=== PATIENT | female | born 1940 | race African-American/Black ===

== ENCOUNTER → 2017-02-21 | Outpatient (CLI) | payer MEDICARE, BC ==
[2016-07-09 20:25] VITALS: BP 148/67
[~2017-02-21] MED LIST: ADAL40PE SQ; ALPR0.25 PO; BISM262T9 PO; CARI350T PO; CELE200C PO; DOCU-27 PO; FOLI1TAB16 PO; HYDR-971 PO; LINA145C PO; METH2.5T PO; OXYC-323 PO; RANI150T2 PO; TRAM50TA PO; VENL37.5 PO
--- NOTE | 2017-02-21 20:32 | CARD ---
APPROVED REPORT EXAM: Two-dimensional and M-mode echocardiogram with Doppler and color Doppler. Other Information Quality : GoodHR: 73bpm Rhythm : NSR INDICATION Palpitations, Abnormal EKG, LVH 2D DIMENSIONS RVDd2.9 (2.9-3.5cm)Left Atrium(2D)3.7 (1.6-4.0cm) IVSd1.1 (0.7-1.1cm)Aortic Root(2D)2.4 (2.0-3.7cm) LVDd4.6 (3.9-5.9cm)LVOT Diameter2.1 (1.8-2.4cm) PWd1.1 (0.7-1.1cm)LVDs2.9 (2.5-4.0cm) FS (%) 37.2 %SV66.1 ml LVEF(%)67.2 (>50%) Aortic Valve AoV Peak Monroe.150.0cm/sAoV VTI32.9cm AO Peak GR.9.0mmHgLVOT Peak Monroe.115.3cm/s AO Mean GR.5mmHgAVA (VMAX)2.55cm2 Mitral Valve MV E Rddhcvye25.9cm/sMV DECEL MIKQ797sm MV A Hzrrqqwb46.3cm/sE/A Ratio0.8 MV A Ntjwkuko03df Pulmonary Valve PV Peak Nmoucban185.5cm/s Tricuspid Valve TR P. Yyiibmjb670vn/sTR Peak Gr.28mmHg Pulmonary Vein S1 Dgspczyc84.5cm/sD2 Txtzfmlo74.9cm/s PVa [id number] LEFT VENTRICLE The left ventricle is normal size. There is mild concentric left ventricular hypertrophy. The left ve ntricular systolic function is normal and the ejection fraction is 60-65%. There is normal LV segment al wall motion. Transmitral Doppler flow pattern is abnormal. RIGHT VENTRICLE The right ventricle is normal size. There is normal right ventricular wall thickness. The right ventr icular systolic function is normal. ATRIA The left atrium size is normal. The right atrium size is normal. The interatrial septum is intact wit h no evidence for an atrial septal defect or patent foramen ovale as noted on 2-D or Doppler imaging. AORTIC VALVE The aortic valve is normal in structure and function. Doppler and Color Flow revealed no significant aortic regurgitation. There is no significant aortic valvular stenosis. MITRAL VALVE The mitral valve is normal in structure and function. There is no evidence of mitral valve prolapse. There is no mitral valve stenosis. Doppler and Color Flow revealed trace mitral regurgitation. TRICUSPID VALVE Doppler and Color Flow revealed mild tricuspid regurgitation. The pulmonary artery systolic pressure is estimated at 31 mmHg. There is mild pulmonary hypertension. PULMONIC VALVE Doppler and Color Flow revealed no pulmonic valvular regurgitation. There is no pulmonic valvular teresa nosis. GREAT VESSELS The aortic root is normal in size. The ascending aorta is normal in size. The pulmonary artery is nor mal. The IVC is normal in size and collapses >50% with inspiration. PERICARDIAL EFFUSION There is no evidence of significant pericardial effusion. Critical Notification Critical Value: No <Conclusion> The left ventricle is normal size. There is mild concentric left ventricular hypertrophy. The left ventricular systolic function is normal and the ejection fraction is 60-65%. There is a Grade I diastolic dfysfunction There is no mitral stenosis or regurgitation The left atrium is of a normal swize. There is no aortic stenosis or regurgitation .The right ventricle is of a normal size with normal systolic function. The pulmonic valve is normal. Doppler and Color Flow revealed mild tricuspid regurgitation. The pulmonary artery systolic pressure is estimated at 31 mmHg. There is mild pulmonary hypertension.
== END | disposition home or self-care (01) ==
LOC: ECHO 10:36
PROVIDERS: ATTEND Family Medicine
DX: I08.1 Rheumatic disorders of both mitral and tricuspid valves (principal); R94.31 Abnormal electrocardiogram [ECG] [EKG]
CPT/HCPCS: 93306

== ENCOUNTER 2018-01-03 14:34 | Emergency (ER) | payer MEDICARE, BC ==
[2018-01-03 15:50] LABS: ADD MAN DIFF? NO
[2018-01-03 15:54] LABS: BASO % 1 % (0-3); EOS # 0.1 x10^3/uL (0.0-0.7); EOS % 1 % (0-3); HEMATOCRIT 39.2 % (36.0-47.0); HEMOGLOBIN 12.9 g/dL (12.0-15.5); LYMPH # 2.8 x10^3/uL (1.0-4.8); LYMPH % 53 % (24-48); MEAN CORPUSCULAR HEMOGLOBIN 29 pg (25-35); MEAN CORPUSCULAR HGB CONC 33 g/dL (31-37); MEAN CORPUSCULAR VOLUME 88 fL (79-100); MONO # 0.6 x10^3/uL (0.0-1.1); MONO % 10 % (0-9); NEUT # 1.8 x10^3uL (1.8-7.7); NEUT % 35 % (31-73); PLATELET COUNT 222 x10^3/uL (140-400); RED BLOOD COUNT 4.45 x10^6/uL (3.50-5.40); RED CELL DISTRIBUTION WIDTH 14.3 % (11.5-14.5); WHITE BLOOD COUNT 5.3 x10^3/uL (4.0-11.0)
[2018-01-03 16:17] LABS: TROPONINI < 0.017 ng/mL (0.000-0.055)
[2018-01-03] MEDS: oxyCODONE IR 5 MG TABLET PO (16:27)
[2018-01-03 16:33] LABS: ALBUMIN 3.2 g/dL (3.4-5.0); ALBUMIN/GLOBULIN RATIO 0.7 (1.0-1.7); ALK PHOS 116 U/L (46-116); ALT (SGPT) 22 U/L (14-59); ANION GAP 8 (6-14); AST (SGOT) 28 U/L (15-37); BLOOD UREA NITROGEN 12 mg/dL (7-20); BUN/CREATININE RATIO 13 (6-20); CALCIUM 9.1 mg/dL (8.5-10.1); CARBON DIOXIDE 28 mmol/L (21-32); CHLORIDE 104 mmol/L (98-107); CREATININE 0.9 mg/dL (0.6-1.0); GFR 73.9; GLUCOSE 119 mg/dL (70-99); POTASSIUM 3.7 mmol/L (3.5-5.1); SODIUM 140 mmol/L (136-145); TOTAL BILIRUBIN 0.3 mg/dL (0.2-1.0); TOTAL PROTEIN 7.6 g/dL (6.4-8.2)
== END 2018-01-03 17:53 | disposition home or self-care (01) ==
LOC: ER 14:34
DX: M79.671 Pain in right foot (principal); R07.89 Other chest pain; M79.601 Pain in right arm; K21.9 Gastro-esophageal reflux disease without esophagitis; M06.9 Rheumatoid arthritis, unspecified; W01.0XXA Fall on same level from slipping, tripping and stumbling without subsequent striking against object, initial encounter; Y93.89 Activity, other specified; Y99.8 Other external cause status; Y92.89 Other specified places as the place of occurrence of the external cause
CPT/HCPCS: 36415; 70450; 71101; 72125; 73030; 73130; 73502; 73552; 73590; 73630; 80053; 84484; 85025; 93005; 99285-25

== ENCOUNTER → 2019-02-09 | Outpatient (CLI) | payer MEDICARE, BC ==
[2018-01-03 17:39] VITALS: BP 155/67
[~2019-02-09] MED LIST changes: +CONTRAST GIVEN. MC PRN; +DOCU-109 PO; -DOCU-27 PO; +HYDR-3164 PO; -HYDR-971 PO; +IBUP-1027 PO; +IOHEXOL 240 MG/ML 50ML VIAL. PO ONE; +IOHEXOL 300 MG/ML 100ML VIAL. IV ONE; -LINA145C PO; +LINZESS145 MCG PO; -OXYC-323 PO; +OXYC1TAB15 PO
--- NOTE | 2019-02-09 15:08 | KCIC ---
Examination: CT chest abdomen with IV and oral contrast HISTORY: History of left upper quadrant pain, pain under left breast COMPARISON: None available TECHNIQUE: Axial CT images of the chest and abdomen performed with IV contrast. Oral contrast was used for CT abdomen. Coronal and sagittal reformats are performed. Exposure: One or more of the following individualized dose reduction techniques were utilized for this examination: 1. Automated exposure control 2. Adjustment of the mA and/or kV according to patient size 3. Use of iterative reconstruction technique FINDINGS: The visualized thyroid gland grossly appears unremarkable. The central airways are patent. Mild cardiomegaly. The caliber of the aorta grossly appears unremarkable. No radiologically significant mediastinal lymphadenopathy is identified. Scattered nodules identified in the bilateral lungs with the largest measuring 5 mm in the right upper lobe. No evidence of pleural effusion or pneumothorax. Mild bibasilar lung atelectasis. The visualized liver, spleen, adrenals grossly appears unremarkable. The gallbladder is mildly distended. The common bile duct appears prominent. There is mild dilated appearing pancreatic duct measuring up to 5 mm in transverse dimension.. The visualized spleen, adrenals grossly appears unremarkable. The stomach is mildly distended. Small hiatal hernia is identified. The small bowel is nondilated. The bilateral kidneys enhance symmetrically. Small superior endplate Schmorl's node identified at T11, T12 vertebral bodies. Mild degenerative changes thoracic spine. Moderate degenerative changes identified in the lumbar spine at L3-L4, L4-L5 vertebral level with posterior disc bulges and protrusions Right breast prosthesis is identified IMPRESSION: 1. Mild prominent appearing possibly dilated appearing pancreatic duct and common bile duct. Recommend MRCP with MRI abdomen for further evaluation. 2. Scattered lung nodules with the largest measuring 5 mm in the right upper lobe of the lung. Follow-up per Fleischner Society guidelines with a follow-up CT chest in 6 months. Electronically signed by: Miguel Larose MD (02/09/2019 3:05 PM) [facility]
== END | disposition home or self-care (01) ==
LOC: KCIC CT 12:07
PROVIDERS: ATTEND Internal Medicine Gastroenterology
DX: R91.8 Other nonspecific abnormal finding of lung field (principal); I51.7 Cardiomegaly; J98.11 Atelectasis; K82.8 Other specified diseases of gallbladder; K44.9 Diaphragmatic hernia without obstruction or gangrene; K31.89 Other diseases of stomach and duodenum; M51.44 Schmorl's nodes, thoracic region
CPT/HCPCS: 71260; 74160; 82565; Q9966; Q9967

== ENCOUNTER → 2019-03-12 | Outpatient (CLI) | payer MEDICARE, BC ==
[2018-01-03 17:39] VITALS: BP 155/67
[~2019-03-12] MED LIST changes: -CONTRAST GIVEN. MC PRN; +GADOBUTROL 10 MMOL/10 ML VIAL IV ONE; -IOHEXOL 240 MG/ML 50ML VIAL. PO ONE; -IOHEXOL 300 MG/ML 100ML VIAL. IV ONE
--- NOTE | 2019-03-12 17:01 | KCIC ---
MRI abdomen with and without contrast and MRCP: Clinical indications: Intermittent left upper quadrant pain for one year. Abnormal CT. History of right breast cancer.. Technique: T1 and T2 weighted MRI sequences of the abdomen was performed in the axial and coronal planes. In phase and out of phase MRI sequences were performed. Using a single shot heavily T2-weighted fast spin-echo and MIP algorithm, 3-D reconstructed MRCP was generated. After IV infusion of 6 cc of Gadavist, postcontrast enhanced multiphasic T1-weighted imaging was performed. COMPARISON: Chest and abdomen CT study dated January 13, 2019. Findings: MRI abdomen: The liver is homogeneous in appearance. The spleen is homogeneous in appearance. The pancreas is homogeneous in appearance. The gallbladder is normal. No adrenal mass is evident. Small right renal cyst. The left kidney is normal. No focal aneurysmal dilatation of the abdominal aorta is seen. No enlarged abdominal lymphadenopathy is seen. No ascites is seen. MRCP: No abnormal dilatation of the intrahepatic or extrahepatic biliary tree is seen. The common bile duct measures 5 to 6 mm in caliber which is normal. No filling defects are seen within the extrahepatic biliary tree. No stricture is seen. There is dilatation of the main pancreatic duct with a smooth contour. It measures 5 mm. IMPRESSION: Small right renal cyst. Smooth dilatation of the main pancreatic duct all the way to the sphincter of Domingo. No filling defect or stricture is seen. No pancreatic mass is seen. Recommend continued abdomen CT follow-up with IV contrast in 6-12 months. Electronically signed by: Pancho King MD (03/12/2019 4:58 PM) [id number]
== END | disposition home or self-care (01) ==
LOC: KCIC MRI 08:52
PROVIDERS: ATTEND Internal Medicine Gastroenterology
DX: N28.1 Cyst of kidney, acquired (principal)
CPT/HCPCS: 74182; A9585

== ENCOUNTER → 2020-04-05 | Outpatient (CLI) | payer MEDICARE, BC ==
[2018-01-03 17:39] VITALS: BP 155/67
[~2020-04-05] MED LIST changes: -GADOBUTROL 10 MMOL/10 ML VIAL IV ONE
--- NOTE | 2020-04-05 17:04 | KCIC ---
3 view study of the right shoulder Clinical indications: Right shoulder pain. Limited range of motion for weeks. FINDINGS: No acute fracture or dislocation or lytic process is evident. The glenohumeral joint is unremarkable. There is mild primary degenerative osteoarthritis and spurring of the right AC joint. No AC joint separation is seen. No erosive arthropathy is evident. 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 Electronically signed by: Pancho King MD (04/05/2020 5:02 PM) [id number]
== END | disposition home or self-care (01) ==
LOC: KCIC 14:20
PROVIDERS: ATTEND Internal Medicine Rheumatology
DX: M19.011 Primary osteoarthritis, right shoulder (principal); M77.8 Other enthesopathies, not elsewhere classified
CPT/HCPCS: 73030

== ENCOUNTER → 2021-09-26 | Outpatient (CLI) | payer MEDICARE, BC ==
[2018-01-03 17:39] VITALS: BP 155/67
--- NOTE | 2021-09-27 10:58 | KCIC ---
XR BILAT FEET 3 VIEWS History: Reason: POLYARTHRALGIA, BILAT FOOT PAIN RT WORSE / Spl. Instructions: / History: Technique: 3 views bilateral feet. Comparison: None. Findings: Left foot: Mild first MTP DJD. No dislocation. No acute fracture. Right foot: Moderate first MTP degenerative changes with remodeling and osteophyte formation. No disl ocation. No acute fracture. Impression: 1. 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 Electronically signed by: Kailash Lim DO (09/27/2021 10:56 AM) [id number]
== END ==
LOC: KCIC 12:41
PROVIDERS: ATTEND Internal Medicine Rheumatology
DX: M19.072 Primary osteoarthritis, left ankle and foot (principal); M19.071 Primary osteoarthritis, right ankle and foot; M25.775 Osteophyte, left foot; M25.774 Osteophyte, right foot
CPT/HCPCS: 73630-50

== ENCOUNTER → 2021-09-26 | Outpatient (CLI) | payer MEDICARE, BC ==
[2018-01-03 17:39] VITALS: BP 155/67
[~2021-09-26] MED LIST changes: +IOHEXOL 240 MG/ML 50ML VIAL. PO ONE; +IOHEXOL 300 MG/ML 100ML VIAL. IV ONE
--- NOTE | 2021-09-26 15:36 | KCIC ---
PQRS Compliance Statement: One or more of the following individualized dose reduction techniques were utilized for this examinat ion: 1. Automated exposure control 2. Adjustment of the mA and/or kV according to patient size 3. Use of iterative reconstruction technique CT abdomen/pelvis with contrast 09/26/2021 1:30 PM INDICATION: Left upper quadrant pain. Diverticulosis. COMPARISON: MRCP 03/12/2019, CT chest and abdomen 02/09/2019 TECHNIQUE: Multiple axial CT images of the abdomen and pelvis were obtained after the intravenous adm inistration of 89 mL Isovue-370. Coronal and sagittal reformats are provided. FINDINGS: Right breast prosthesis. Lung bases are clear. Heart size within normal limits. There is an 8 mm cyst in the inferior left hepatic lobe (series 2, image 20). Spleen, adrenal glands and pancreas are norm al in appearance. Main pancreatic duct is mildly prominent measuring 3.5 mm. Gallbladder is present w ithout adjacent inflammation. Abdominal aorta is normal in course and caliber. No pathologically enlarged lymph nodes are identifie d in abdomen and pelvis. There is no free fluid or free intraperitoneal air. Moderate stool identified throughout the colon with rectal dilatation measuring up to 6.7 x 6.1 cm. O ral contrast was administered. Opacified bowel loops demonstrate normal mucosal fold pattern. Small a nd large bowel are normal in caliber. There is no evidence for bowel obstruction. There are no shaka lonic inflammatory changes. A normal, nondilated appendix is visualized without adjacent inflammatory changes. 8 mm simple cyst in interpolar right kidney. The kidneys enhance symmetrically. There is no suspiciou s renal mass. There is no hydronephrosis. There are no suspected calculi within the kidneys, ureters or urinary bladder. Urinary bladder is within normal limits given degree of distention. Uterus is normal. No suspicious a dnexal mass. IMPRESSION: No bowel obstruction or inflammation. Moderate stool throughout the colon with rectal dilatation measuring up to 6.7 x 6.1 cm. Mild dilatation of the main pancreatic duct may be secondary to mild pancreatic atrophy. Electronically signed by: Juanita John MD (09/26/2021 3:34 PM) [facility]
== END ==
LOC: KCIC CT 12:35
PROVIDERS: ATTEND Internal Medicine Gastroenterology
DX: K57.30 Diverticulosis of large intestine without perforation or abscess without bleeding (principal); N28.1 Cyst of kidney, acquired; Z98.82 Breast implant status
CPT/HCPCS: 74177; 82565; Q9966; Q9967

== ENCOUNTER → 2021-10-23 | Outpatient (CLI) | payer MEDICARE, BC ==
[2018-01-03 17:39] VITALS: BP 155/67
[~2021-10-23] MED LIST changes: -IOHEXOL 240 MG/ML 50ML VIAL. PO ONE; -IOHEXOL 300 MG/ML 100ML VIAL. IV ONE
--- NOTE | 2021-10-23 12:26 | KCIC ---
EXAM: Abdomen series, 3 views. HISTORY: Fecal impaction. COMPARISON: None. FINDINGS: A frontal view of the chest and frontal upright and supine views of the abdomen are obtaine d. There are chronic appearing interstitial changes with biapical pleural thickening. There are lumpe ctomy changes with associated surgical clips within the right breast. The heart is normal in size. Th ere is moderate stool throughout the colon. This appears decreased compared to the prior exam. There is no evidence of bowel obstruction. There is no free air. There is lumbar scoliosis and degenerative change at the lower lumbar levels. There is partial sacralization of the L5 vertebral segment, a nor mal variant. IMPRESSION: 1. Slight decrease in moderate colonic stool. 2. No acute pulmonary finding. Electronically signed by: Jessica Suggs MD (10/23/2021 12:23 PM) [id number]
== END ==
LOC: KCIC 11:26
PROVIDERS: ATTEND Internal Medicine Gastroenterology
DX: K56.41 Fecal impaction (principal); M47.816 Spondylosis without myelopathy or radiculopathy, lumbar region; M43.27 Fusion of spine, lumbosacral region; M41.86 Other forms of scoliosis, lumbar region
CPT/HCPCS: 74022

== ENCOUNTER → 2022-02-26 | Outpatient (CLI) | payer MEDICARE, BC ==
[2018-01-03 17:39] VITALS: BP 155/67
--- NOTE | 2022-02-27 09:06 | KCIC ---
XR CERVICAL SPINE 2-3V 02/26/2022 Reason: Recent fall, neck pain with Rt arm pain Comparison: None Technique: Frontal lateral and odontoid views Findings: Cervical spine is seen from the craniocervical junction through C7. Changes of ACDF at the C3 3-5 lev els with disc space prostheses. There is reversal of the normal cervical lordosis. No evidence of jum ped facet. Vertebral body heights are within normal limits. There is severe degenerative change at th e C5-C6 disc space with vertebral hypertrophy. Possible fragmentation along the anterior aspect of th e C6 superior endplate. Degenerative facet hypertrophy. The odontoid is intact and the lateral masses of C1 are appropriately aligned. Impression: Fragmentation along the anterior aspect of the superior C6 endplate may relate to a fractured osteoph yte. No significant prevertebral soft tissue swelling. Cross-sectional imaging may be of value for fu rther evaluation. Electronically signed by: Rojas Pemberton MD (02/27/2022 9:03 AM) [id number]
== END ==
LOC: KCIC 11:27
PROVIDERS: ATTEND Neurological Surgery
DX: M47.812 Spondylosis without myelopathy or radiculopathy, cervical region (principal); W19.XXXA Unspecified fall, initial encounter
CPT/HCPCS: 72040